=== PATIENT | male | born 1945 | race Caucasian/White ===

== ENCOUNTER 2019-10-25 11:46 | Emergency (ER) | payer MEDICARE, SELFPAY ==
--- NOTE | ~2019-10-25 | XR_ITS ---
EXAMINATION: XR abdomen NG/feed tube insert EXAM DATE: 10/25/2019 15:32 INDICATION: Feeding tube placement. Acute appendicitis. TECHNIQUE: Frontal projection(s) of the abdomen for interpretation. There is no prior study for rakesh chan. FINDINGS: Feeding tube tip and side-port project over gastric bubble, expected position. There are m ultiple loops of moderately distended air-filled jejunum in the left side of the abdomen. The lung ba ses unremarkable. IMPRESSION: 1. Feeding tube in position. 2. Moderately distended jejunum. Reviewed, dictated and finalized at location A.
--- NOTE | ~2019-10-25 | CT_ITS ---
EXAMINATION: CT abdomen pelvis wo con DATE: 10/25/2019 13:34 INDICATION: Generalized abdominal pain. Nausea and vomiting. TECHNIQUE: Computed tomography (CT) of the abdomen and pelvis was performed without intravenous contr ast. Automated exposure control and iterative reconstruction technique were employed. The dose-length product was 502.96 mGy-cm. COMPARISON: None. FINDINGS: The visualized portions of the lung bases demonstrate mild atelectasis and mild chronic david g disease. No pleural effusion. The heart size is normal. No pericardial effusion. There are coronary artery calcifications. There is a small sliding hiatal hernia. There is diffuse hepatic steatosis. T he gallbladder, spleen, pancreas, adrenal glands, and kidneys are normal. The prostate is mildly enla rged. There are multiple dilated loops of small bowel without focal transition point. There is wall t hickening of the terminal ileum, consistent with enteritis. The appendix contains appendicoliths and is dilated to 13 mm. There is fat stranding adjacent to the appendix. There is a 16 mm periappendicea l abscess. There are no pathologically enlarged lymph nodes. There is no free intraperitoneal fluid. There are chronic bilateral L5 pars defects. There is 6 mm anterolisthesis of L5 on S1. There is mild thoracolumbar spondylosis. IMPRESSION: 1. Acute appendicitis with 16 mm periappendiceal abscess. I called this result to Dr. Mazariegos on 10/24 at 13:44. 2. Terminal ileitis, likely secondary to the appendicitis. 3. Dilated small bowel, consistent with adynamic ileus versus partial small bowel obstruction of the terminal ileum. Reviewed, dictated and finalized at location A. IMPRESSION: 1. Acute appendicitis with 16 mm periappendiceal abscess. I called this result to Dr. Mazariegos on 10/25/19 at 13:44. 2. Terminal ileitis, likely secondary to the appendicitis. 3. Dilated small bowel, consistent with adynamic ileus versus partial small bow el obstruction of the terminal ileum.
--- NOTE | ~2019-10-25 | XR_ITS ---
EXAMINATION: XR chest 2V DATE: 10/25/2019 13:34 INDICATION: Abdominal pain. TECHNIQUE: Frontal and lateral views of the chest were obtained. COMPARISON: Chest 2 views 07/15/2018 FINDINGS: The chest demonstrates clear lungs without pneumonia, pleural effusion, or pneumothorax. Th e heart size is normal. There are multiple dilated loops of small bowel. IMPRESSION: 1. No acute cardiopulmonary disease. 2. Dilated small bowel, consistent with adynamic ileus versus small bowel obstruction. Reviewed, dictated and finalized at location A. IMPRESSION: 1. No acute cardiopulmonary disease. 2. Dilated small bowel, consistent with adynamic ileus versus small bowel obstr uction.
--- NOTE | 2019-10-25 12:05 | ED.ABDPAIN ---
HPI - Abdominal Pain General Chief Complaint: Abdominal Pain Stated Complaint: Pain in L hip and lots of stomach pain Time Seen by Provider: 10/25/19 12:05 Source: patient Mode of arrival: ambulatory Limitations: no limitations History of Present Illness HPI narrative: 74-year-old man with a history hypertension comes in today complaining of abdominal back pain that started 3 days ago. Patient states that he was lifting and heavy trash bin and while it shifted and hurt his back. Patient states that he had some vomiting which was dark colored and he has had some black stools at [place] 2:00 a.m. this morning. He denies chest pain, shortness of breath, leg weakness, numbness, tingling, incontinence and syncope. Last summer he had a flip-flop that was negative except for polyps. He has a history of elevated PSA and two negative bx. MD elicited complaint: abdominal pain Onset (ago): day(s) (3) Pain Consistency: constant Location: periumbilical Severity: severe Quality: sharp Migration to: no migration Exacerbating factors: movement and other (lying supine) Relieving factors: other (sitting upright) Associated symptoms: nausea, vomiting and melena Treatments prior to arrival: NSAIDs Related Data Home Medications Medication Instructions Recorded Confirmed amlodipine 10 mg PO DAILY 10/25/19 10/25/19 carbidopa-levodopa 1 tablet PO QID 10/25/19 10/25/19 famotidine 40 mg PO DAILY 10/25/19 10/25/19 Allergies Allergy/AdvReac Type Severity Reaction Status Date / Time No Known Allergies Allergy Verified 10/25/19 12:30 Review of Systems Constitutional: Constitutional: Denies chills, Denies fatigue, Denies fever(s) and Denies weakness Eyes: Eyes: Denies change in vision and Denies photophobia ENT: Denies dysphagia, Denies nasal congestion and Denies sore throat Cardiovascular: Cardiovascular: Denies chest pain and Denies radiating jaw, neck or arm pain Respiratory: Respiratory: Denies cough, Reports dyspnea (only because it hurts to take a deep breath.) and Denies wheezing Gastrointestinal: Gastrointestinal: Reports abdominal pain, Reports nausea and Reports vomiting Genitourinary: Genitourinary: Reports hematuria, Reports dysuria and Reports urinary frequency Musculoskeletal: Musculoskeletal: Reports back pain, Denies arthralgias and Denies joint swelling Integumentary/Breasts: Skin/Breast: Denies pruritus, Denies erythema and Denies rash Neurologic: Denies vertigo, Denies dizziness, Denies syncope, Denies focal weakness and Denies numbness Psychiatric: Psychiatric: Denies anxiety and Denies depression Endocrine: Endocrine: Denies polydipsia and Denies polyuria Hematologic/Lymphatic: Hematologic/Lymphatic: Denies easy bleeding and Denies easy bruising Allergic/Immunologic: Allergic/Immunologic: Denies lip swelling and Denies wheezing [facility] Past Medical History Medical History (Updated 10/25/19 @ 13:56 by Jas Mazariegos MD) Hypertension Restless leg syndrome Surgical History Surgical History (Updated 10/25/19 @ 12:36 by Jas Mazariegos MD) H/O shoulder surgery History of tonsillectomy Social History Social History (Updated 10/25/19 @ 12:37 by Jas Mazariegos MD) Smoking status: Former smoker Alcohol intake: current Substance use: never Living arrangements: with family Exam Const: General: healthy appearing and alert Orientation/consciousness: patient oriented x3 Limitations: no limitations Other: moderate acute distress HENMT: Head: normal to inspection Mouth: Yes moist mucous membranes Eyes: Conjunctivae: conjunctivae normal Pupils: Equal, round and reactive pupils present EOM: EOMs intact bilaterally Neck: Neck: normal visual inspection and no lymphadenopathy Resp: Effort & Inspection: normal respiratory effort, not labored and no retractions Auscultation: clear to auscultation bilaterally, no rales, no rhonchi and no wheezes Cardio: Rate: regular rate Rhythm:
--- NOTE | 2019-10-25 12:13 | ECG_ITS ---
Measurements Intervals [place] Rate: 89 P: 71 DC: 148 QRS: 20 QRSD: 101 T: 20 QT: 347 QTc: 422 Interpretive Statements SINUS RHYTHM DELAYED PRECORDIAL R/S TRANSITION BORDERLINE ST-T WAVE ABNORMALITY- INFERIOR LEADS BORDERLINE ECG Electronically Signed On 10-25-2019 12:27:10 CDT by Hiram Anders D.O.
[2019-10-25 12:16] VITALS: BP 122/80; PULSE 101; RESP 16; TEMP 36.7; O2SAT 98
[2019-10-25 12:39] LABS: Hematocrit 40.7 % (37.0-46.0); Hemoglobin 14.3 g/dL (12.4-15.3); Mean Corpuscular HGB Conc 35.1 g/dL (32.0-36.0); Mean Corpuscular Hemoglobin 32.4 pg (27.0-31.0); Mean Corpuscular Volume 92.1 fL (78.0-102.0); Mean Platelet Volume 10.2 fl (8.7-11.0); Platelet Count Result 185 K/mm3 (150-420); Red Blood Count 4.42 M/mm3 (4.70-6.10)
[2019-10-25] MEDS: LACTATED RINGERS 1,000 ML 999 ML IV CONT (12:39)
[2019-10-25] MEDS: MORPHINE SULFATE 4 MG/ML INJ IV PUSH (12:39)
[2019-10-25] MEDS: ONDANSETRON INJ 4 MG/2 ML VIAL IV PUSH (12:39)
[2019-10-25 12:45] VITALS: BP 137/84; PULSE 65; RESP 14; O2SAT 98
[2019-10-25 13:00] LABS: INR 1.2; Lactic Acid Reflex 1.4 mmol/L (0.4-2.0); Partial Thromboplastin Time 39.7 SEC (22.3-31.6)
[2019-10-25 13:03] LABS: Alanine Aminotransferase 7 U/L (16-63); Albumin Level 3.2 g/dL (3.4-5.0); Alkaline Phosphatase 68 U/L (46-116); Aspartate Amino Transferase 11 U/L (15-37); Bilirubin,Total 0.6 mg/dL (0.00-1.00); Blood Urea Nitrogen 45 mg/dL (7-18); Calcium 8.9 mg/dL (8.5-10.1); Carbon Dioxide 22 mmol/L (21-32); Chloride 95 mmol/L (98-108); Estimated CRCL calculation 25 ml/min; Estimated Glomerular Filt Rate 27; Glucose 134 mg/dL (70-99); Lipase 57 U/L (73-393); Osmolality Calculated 287 mOsm/kg (285-295); Sodium 132 mmol/L (136-145); Total Protein 8.2 g/dL (6.4-8.2)
[2019-10-25 13:04] LABS: Troponin I < 0.02 ng/mL (0.00-0.056)
[2019-10-25 13:06] LABS: Band Neutrophils Percent 6 % (0-6); Basophils Percent Manual 0 % (0-1); Eosinophils Absolute Manual 0.06 K/mm3 (0.02-0.5); Eosinophils Percent Manual 1 % (1-6); Lymphocytes Absolute Manual 0.42 K/mm3 (1.1-4.5); Lymphocytes Percent Manual 7 % (18-44); Monocytes Absolute Manual 0.12 K/mm3 (0.1-0.90); Monocytes Percent Manual 2 % (3-9); Neutrophils Percent Manual 84 % (46-73); Platelet Estimate Adequate (Adequate); Total Cells Counted 100
[2019-10-25 13:10] LABS: CRP > 25.0 mg/dL (0.0-0.9)
[2019-10-25 13:43] VITALS: BP 148/79; PULSE 82; RESP 14; O2SAT 98
[2019-10-25 13:46] LABS: Appearance Urine Clear (Clear); Bilirubin Urine Negative (Negative); Color Urine Yellow (Yellow); Glucose Urine UA Negative (Negative); Ketones Urine Trace (Negative); Leukocyte Esterase Ur Negative LEU/UL (Negative); Nitrate Urine Negative (Negative); Protein Urine Trace (Negative); Specific Grav Ur <= 1.005 (1.010-1.020); Urobilinogen Urine 0.2 mg/dL (0.2-1.0)
--- NOTE | 2019-10-25 13:48 | PC.NURSE ---
Pt requests [facility] for further care. pts pmd is at [facility].
[2019-10-25 14:00] LABS: Add Urine Microscopic? YES; Blood Urine Trace-lysed (Negative); RBC Urine 0-2 /hpf (0-2); WBC Urine 0-3 /hpf (0-3)
[2019-10-25 14:01] LABS: Bacteria Urine Trace /hpf
--- NOTE | 2019-10-25 14:09 | PC.NURSE ---
Dr. Mazariegos speaking with Dr. Ibrahim at [facility] pmd
--- NOTE | 2019-10-25 15:00 | PC.NURSE ---
Pt to be direct admit to Dr. Ibrahim, awaiting room assignment. Attempted to call warehouse order puller, unable to reach.
[2019-10-25] MEDS: SODIUM CHLORIDE 0.9% IV 1,000 ML 150 ML IV CONT (15:07)
[2019-10-25 15:35] VITALS: BP 151/82; PULSE 78; RESP 14; O2SAT 96
--- NOTE | 2019-10-25 15:44 | PC.NURSE ---
supervisor public message service on phone, will call back with bed assignment.
--- NOTE | 2019-10-25 16:10 | PC.NURSE ---
Pt to go to room G618 at [facility] report called to Mae CARSON. Dr. Mazariegos speaking with o/c surgeon.
[2019-10-25 16:19] VITALS: BP 133/80; PULSE 79; RESP 16; O2SAT 98
--- NOTE | 2019-10-25 16:19 | PC.NURSE ---
[facility] unavailable for transfer [facility] contacted.
== END 2019-10-25 16:45 | disposition short-term general hospital (02) ==
PROVIDERS: Emergency Provider Emergency Medicine; PCP Internal Medicine
DX: K35.80 Unspecified acute appendicitis (principal); I10 Essential (primary) hypertension; R97.20 Elevated prostate specific antigen [PSA]; G25.81 Restless legs syndrome
CPT/HCPCS: 36415; 71046; 74176; 80053; 81001; 83605; 83690; 84484; 85025; 85610; 85730; 86140; 93005; 96361; 96365; 96375; 99284; 99285; J2270; J2405; J2543; J7030; J7120

== ENCOUNTER 2021-07-25 14:06 | Outpatient (CLI) | payer MEDICARE, SELFPAY ==
[2021-07-25 15:22] LABS: SARS-CoV-2 RNA PCR Negative (Negative)
== END 2021-07-25 14:07 | disposition home or self-care (01) ==
LOC: CHSLAB 14:09
PROVIDERS: PCP Internal Medicine; Visit Provider Internal Medicine
DX: R05.9 Cough, unspecified (principal); Z20.822 Contact with and (suspected) exposure to COVID-19
CPT/HCPCS: C9803; U0003; U0005